=== PATIENT | female | born 1950 | race Two or more races ===

== ENCOUNTER 2018-04-30 16:27 | Emergency (ER) | payer OTHER ==
[~2018-04-30] VITALS: Ht 160 cm; Wt 77.1 kg
[2018-04-30] MEDS ORDERED: CRESTOR5 MG PO (16:42)
[2018-04-30] MEDS ORDERED: NEURONTIN800 MG PO (16:42)
[2018-04-30] MEDS ORDERED: VOLTAREN-XR100 MG PO (18:24)
[2018-04-30] MEDS ORDERED: ULTRACET PO (18:24)
== END 2018-05-01 00:16 | disposition home or self-care (01) ==
LOC: ER 16:27
DX: S80.01XA Contusion of right knee, initial encounter (principal); M25.061 Hemarthrosis, right knee; W01.198A Fall on same level from slipping, tripping and stumbling with subsequent striking against other object, initial encounter; Y93.89 Activity, other specified; Y92.89 Other specified places as the place of occurrence of the external cause; Y99.8 Other external cause status